=== PATIENT | male | born 1975 | race Caucasian/White ===

== ENCOUNTER 2017-07-06 02:24 | Emergency (ER) | payer OTHER ==
[2017-07-06 02:35] VITALS: BP 128/80; PULSE 102; RESP 20; TEMP 97.1
--- NOTE | 2017-07-06 03:30 | CT ---
EXAM: CT Head Without Intravenous Contrast CLINICAL HISTORY: Reason: Pain TECHNIQUE: Axial computed tomography images of the head/brain without intravenous contrast. CTDI is 57.40 mGy and DLP is 1061.90 mGy-cm. This CT exam was performed using one or more of the following dose reduction techniques: automated exposure control, adjustment of the mA and/or kV according to patient size, and/or use of iterative reconstruction technique. COMPARISON: No relevant prior studies available. FINDINGS: Brain: Unremarkable. No hemorrhage. No significant white matter disease. No edema. Ventricles: Unremarkable. No ventriculomegaly. Bones/joints: Unremarkable. No acute fracture. Soft tissues: Unremarkable. Sinuses: Unremarkable as visualized. No acute sinusitis. Mastoid air cells: Unremarkable as visualized. No mastoid effusion. IMPRESSION: Normal head/brain CT. EXAM: CT Cervical Spine Without Intravenous Contrast CLINICAL HISTORY: Reason: Pain TECHNIQUE: Axial computed tomography images of the cervical spine without intravenous contrast. CTDI is 20.70 mGy and DLP is 425.90 mGy-cm. This CT exam was performed using one or more of the following dose reduction techniques: automated exposure control, adjustment of the mA and/or kV according to patient size, and/or use of iterative reconstruction technique. Coronal and sagittal reformatted images were created and reviewed. COMPARISON: No relevant prior studies available. FINDINGS: Vertebrae: Unremarkable. No acute fracture. Discs/spinal canal/neural foramina: At C3-4, there is mild right osseous neural foraminal narrowing. There is mild left osseous neural foraminal narrowing on the left at C5-6. Disc space narrowing with marginal hypertrophic changes are noted C3-4, C5-6 and C6-7 levels. Soft tissues: Unremarkable. Lung apices: Unremarkable as visualized. IMPRESSION: Degenerative changes of cervical spine. No acute osseous traumatic injury identified.
[2017-07-06] MEDS ORDERED: HYDROcodone/APAP 5-325MG 1 EACH TAB PO STA (03:39)
[2017-07-06] MEDS ORDERED: IBUPROFEN 600 MG TAB PO STA (03:39)
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
--- NOTE | 2017-07-06 03:45 | XR ---
EXAM: XR Right Elbow Complete, 3 or More Views CLINICAL HISTORY: Reason: Pain TECHNIQUE: Frontal, lateral and oblique views of the right elbow. COMPARISON: No relevant prior studies available. FINDINGS: Bones/joints: Unremarkable. No acute fracture. No dislocation. Soft tissues: Unremarkable. No effusion. IMPRESSION: Normal right elbow.
--- NOTE | 2017-07-06 03:45 | XR ---
EXAM: XR Right Forearm, 2 Views CLINICAL HISTORY: Reason: Pain TECHNIQUE: Frontal and lateral views of the right forearm. COMPARISON: No relevant prior studies available. FINDINGS: Bones/joints: Unremarkable. No acute fracture. No dislocation. Soft tissues: Unremarkable. IMPRESSION: Normal right forearm.
== END 2017-07-06 04:05 | disposition home or self-care (01) ==
LOC: EC 02:24 → SUPCPDRO 02:24 → EC 04:05
DX: S56.911A Strain of unspecified muscles, fascia and tendons at forearm level, right arm, initial encounter (principal); S46.911A Strain of unspecified muscle, fascia and tendon at shoulder and upper arm level, right arm, initial encounter; S00.83XA Contusion of other part of head, initial encounter; F17.200 Nicotine dependence, unspecified, uncomplicated; Y04.2XXA Assault by strike against or bumped into by another person, initial encounter; Y92.009 Unspecified place in unspecified non-institutional (private) residence as the place of occurrence of the external cause
CPT/HCPCS: 70450; 72125; 99284